=== PATIENT | female | born 1995 | race Caucasian/White ===

== ENCOUNTER 2018-05-15 17:01 | Outpatient (CLI) | payer MEDICAID ==
[~2018-05-15] VITALS: Ht 152.4 cm; Wt 68.0 kg
[~2018-05-15 17:01] MED LIST: ALBU8.5H IH; AMOX-559 PO; AMPH10TA20 PO; AMPH20TA18 PO; AZIT-1 PO; BIRTH CONTROL; BUP100 PO; BUTA1CAP4 PO; BUTA1TAB14 PO; CHOL10005 PO; DOCU-416 PO; DOXY-179 PO; EPIN0.3P15 IM; ESCI20TA38 PO; FLU60SYR30 IM ONLY; HYDR-4309 PO; IBUP-1618 PO; IBUP600T22 PO; IBUP800T37 PO; IBUPROFEN PO; IPRA3AMP10 IH; LEVO0.5P3 MC; LEVO50TA80 PO; LEXAPRO PO; LIB PO; MED150I IM ONLY; METR-1 PO; MIR; NAP500 PO; NITR-105 PO; OMEP-125 PO; ONDA4TAB PO; ONDA4TAB97 PO; OXYC-865 PO; PAR20 PO; PARO-243 PO; PARO-244 PO; PRED20TA6 PO; PREN-127 PO; PREN1TAB15 PO; PROM-110 PO; PROM25SU9 RC; PROP10TA58 PO; PROP20TA56 PO; R-TANPT PO; SERT-181 PO; SERT-184 PO; SULF-198 PO; SUMA50TA34 PO; TRA50 PO; TRAM-420 PO; TRAZ-133 PO
[2018-05-15 17:15] VITALS: BP 117/79; Ht 152.4 cm; Wt 68.0 kg
[2018-05-15] MEDS ORDERED: ACETAMINOPHEN 500 MG TAB PO ONE (17:45)
[2018-05-15] MEDS ORDERED: LR(*) 1000 ML BAG 1,000 ML IV ONE (17:45)
[2018-05-15 18:50] LABS: PLATELET COUNT, AUTOMATED 266 K/uL (150-450)
== END 2018-05-15 19:43 | disposition home or self-care (01) ==
LOC: L&D 17:01 → OB 17:01 → UNDOADMIN 17:01 → UNDODISIN 19:43 → L&D 19:43 → EDSTATUS 05-17 12:54
PROVIDERS: ATTEND Student in an Organized Health Care Education/Training Program
DX: O26.893 Other specified pregnancy related conditions, third trimester (principal); R10.30 Lower abdominal pain, unspecified; Z3A.29 29 weeks gestation of pregnancy
CPT/HCPCS: 36415; 81001; 85025; 87077; 87088; 87186; G0463; J7120; 99213

== ENCOUNTER → 2018-06-04 | Outpatient (CLI) | payer MEDICAID ==
[2018-05-15 17:15] VITALS: BMI 29.3
[~2018-06-04] MED LIST changes: +DIPH0.5D12 IM
[2018-06-04 11:20] LABS: PLATELET COUNT, AUTOMATED 301 K/uL (150-450)
== END ==
LOC: LAB 10:45
PROVIDERS: ATTEND Obstetrics & Gynecology
DX: O09.33 Supervision of pregnancy with insufficient antenatal care, third trimester (principal); E03.9 Hypothyroidism, unspecified
CPT/HCPCS: 36415; 84443; 85025; 86592; 86703; 86762; 86787; 86850; 86900; 86901; 87340; 87491; 87591

== ENCOUNTER → 2018-06-07 | Outpatient (CLI) | payer MEDICAID ==
[2018-05-15 17:15] VITALS: BMI 29.3
--- NOTE | 2018-06-07 13:31 | RADIOLOGY IMAGING REPORT ---
[place]AC[place] [facility] [place] NAME: Katie Lux : 1995 MR: [id number] V: [id number] EXAM DATE: ORDERING PHYSICIAN: MAYI RIVERA TECHNOLOGIST: Location: [facility] - [place] Patient: Katie Lux : 1995 Visit/Account:[id number] Date of Sevice: 06/07/2018 OB ANATOMICAL SURVEY HISTORY: Third trimester anatomic survey, no care COMPARISON: None. TECHNIQUE: Transabdominal imaging was performed for assessment of the fetus and maternal pelvic s tructures. Transvaginal imaging was not performed. FINDINGS: Intrauterine gestations: One. presentation: Cephalic. heart rate: 135 bpm. Amniotic fluid volume: Normal; CIRILO 17.5 cm; MVP 7 cm. Placenta: Anterior and fundal. Uterus: Gravid, otherwise grossly unremarkable where visualized. Maternal adnexa/ovaries: Grossly unremarkable, ovaries not visualized. Cervix: Not imaged. Gestational Parameters: BPD: 8.02 cm, 21st percentile HC: 99.14 cm, 4th percentile AC: 26.63 cm, 4th percentile FL: 6.18 cm, 16th percentile Average ultrasound age (AUA): 31 weeks/ six days Estimated age based on LMP: 33 weeks/ zero days, LMP percentile 7% Estimated weight (EFW): 1760 grams +/- 257 grams Anatomic Survey: Intracranial structures, 4-chamber heart, stomach, kidneys, urinary bladder, spine, 3-vessel cord and cord insertion are unremarkable. Two upper and two lower extremities visualized. IMPRESSION: Single fetus in cephalic presentation with an estimated gestational age by measurements of 31 weeks a nd six days. Estimated gestational age by LMP is 33 weeks and zero days. LMP percentile is 70% Estimated weight 1760 g Report Dictated By: Amy Barnett MD at 06/07/2018 1:24 PM Report E-Signed By: Amy Barnett MD at 06/07/2018 1:28 PM WSN:SALAS
== END ==
LOC: RAD 08:00
PROVIDERS: ATTEND Obstetrics & Gynecology
DX: O09.33 Supervision of pregnancy with insufficient antenatal care, third trimester (principal); O09.93 Supervision of high risk pregnancy, unspecified, third trimester; Z3A.31 31 weeks gestation of pregnancy

== ENCOUNTER → 2018-06-07 | Outpatient (CLI) | payer MEDICAID ==
[2018-05-15 17:15] VITALS: BMI 29.3
== END ==
LOC: LAB 08:06
PROVIDERS: ATTEND Obstetrics & Gynecology
DX: Z34.93 Encounter for supervision of normal pregnancy, unspecified, third trimester (principal)
CPT/HCPCS: 36415; 82950

== ENCOUNTER → 2018-06-17 | Outpatient (CLI) | payer MEDICAID ==
[2018-05-15 17:15] VITALS: BMI 29.3
[~2018-06-17] MED LIST changes: +CEPH500T7 PO; +DIPH-740 PO
== END ==
LOC: LAB 10:13
PROVIDERS: ATTEND Student in an Organized Health Care Education/Training Program
DX: N39.0 Urinary tract infection, site not specified (principal)
CPT/HCPCS: 87088

== ENCOUNTER 2018-06-25 11:08 | Outpatient (CLI) | payer MEDICAID ==
[2018-05-15 17:15] VITALS: Wt 75.7 kg
[2018-06-25] MEDS ORDERED: NIFEdipine 10 MG CAP PO ONE ×2 (11:30→11:53)
[2018-06-25 11:35] VITALS: BP 106/57
[2018-06-25] MEDS ORDERED: ACETAMINOPHEN 500 MG TAB PO ONE (12:30)
--- NOTE | 2018-06-25 13:41 | RADIOLOGY IMAGING REPORT ---
FACILITY: [facility] PATIENT NAME: Katie Lux : 1995 MR: [id number] V: [id number] EXAM DATE: ORDERING PHYSICIAN: MAYI RIVERA TECHNOLOGIST: Location: [facility] Patient: Katie Lux : 1995 Visit/Account:[id number] Date of Sevice: 06/25/2018 OB Ultrasound > 14 weeks with anatomic evaluation HISTORY: Growth and CIRILO, umbilical cord Dopplers if less than the 5th percentile. COMPARISON STUDIES: evaluation from June 07. FINDINGS: Intrauterine gestations: one presentation: Vertex heart rate: 147 bpm Amniotic fluid index: 10.5 cm Largest amniotic fluid pocket 6.0 cm Placenta: Anterior superior without previa Uterus: gravid, otherwise normal Maternal adnexa: Unremarkable Gestational Parameters: BPD: 8.36 cm 33 weeks five days HC: 30.75 cm 34 weeks three days AC: 29.68 cm 33 weeks five days FL: 6.52 cm 33 weeks five days Average ultrasound age (AUA): 34 weeks zero days. TIRSO: 08/06/2018. Estimated weight (EFW): 2258 g EFW: 9th percentile Anatomic Survey: Anatomic survey was not performed. IMPRESSION: 1. Single live intrauterine gestation; estimated ultrasound age 34 weeks, zero days. Correlates appr opriately with the LMP.. 2. Vertex positioning 3. Estimated weight 2258 g, 9th percentile. Report Dictated By: Adin Brown MD at 06/25/2018 1:21 PM Report E-Signed By: Adin Brown MD at 06/25/2018 1:38 PM WSN:SIA-ZENAIDA
[2018-06-25] MEDS ORDERED: TERBUTALINE SULF 1 MG/ML VIAL SC ONE (16:55)
== END 2018-06-25 19:15 | disposition home or self-care (01) ==
LOC: UNDOADMIN 11:08 → OB 11:08 → L&D 11:08 → OB 11:08 → UNDODISIN 19:15 → L&D 19:15 → EDSTATUS 07-02 16:33
PROVIDERS: ATTEND Obstetrics & Gynecology
DX: O47.03 False labor before 37 completed weeks of gestation, third trimester (principal); Z3A.35 35 weeks gestation of pregnancy
CPT/HCPCS: 76815; 76820; 84112; 87081; G0463; J3105; 99213

== ENCOUNTER → 2018-06-25 | Outpatient (CLI) | payer MEDICAID ==
[2018-05-15 17:15] VITALS: BMI 29.3
== END ==
LOC: LAB 10:59
PROVIDERS: ATTEND Obstetrics & Gynecology
DX: O26.899 Other specified pregnancy related conditions, unspecified trimester (principal); Z36.85 Encounter for antenatal screening for Streptococcus B
CPT/HCPCS: 84112; 87081

== ENCOUNTER 2018-07-08 12:17 | Outpatient (CLI) | payer MEDICAID ==
[2018-05-15 17:15] VITALS: Wt 75.7 kg
== END 2018-07-08 14:14 | disposition home or self-care (01) ==
LOC: UNDOADMIN 12:17 → OB 12:17 → L&D 12:17 → OB 12:17 → UNDODISIN 14:14 → L&D 14:14 → EDSTATUS 07-12 06:50
PROVIDERS: ATTEND Obstetrics & Gynecology
DX: O47.1 False labor at or after 37 completed weeks of gestation (principal); Z3A.37 37 weeks gestation of pregnancy
CPT/HCPCS: 59025; 81001; 84112; G0463; 99213

== ENCOUNTER → 2018-07-14 | Outpatient (CLI) | payer MEDICAID ==
[2018-05-15 17:15] VITALS: BMI 29.3
== END ==
LOC: LAB 11:27
PROVIDERS: ATTEND Obstetrics & Gynecology
DX: R11.2 Nausea with vomiting, unspecified (principal)
CPT/HCPCS: 36415; 82040; 82247; 82310; 82374; 82435; 82565; 82947; 84075; 84132; 84155; 84295; 84450; 84460; 84520; 85027

== ENCOUNTER 2018-07-15 08:38 | Outpatient (CLI) | payer MEDICAID ==
[~2018-07-15] VITALS: Ht 152.4 cm; Wt 77.6 kg
[2018-07-15 09:30] VITALS: BP 122/60; BMI 33.4
[2018-07-15] MEDS ORDERED: DLR(*) 1000 ML BAG 1,000 ML IV PRN (11:13)
[2018-07-15] MEDS ORDERED: ONDANSETRON 4 MG/2 ML VIAL IVP ONE (11:15)
[2018-07-15] MEDS ORDERED: LR(*) 1000 ML BAG 1,000 ML ONE (11:25)
[2018-07-19 07:30] VITALS: Ht 152.4 cm; Wt 77.6 kg
== END 2018-07-15 13:40 | disposition home or self-care (01) ==
LOC: OB 08:38 → UNDOADMIN 08:38 → L&D 08:38 → OB 08:38 → L&D 13:40 → UNDODISIN 13:40 → EDSTATUS 07-19 09:00
PROVIDERS: ATTEND Obstetrics & Gynecology
DX: O60.03 Preterm labor without delivery, third trimester (principal); Z3A.38 38 weeks gestation of pregnancy
CPT/HCPCS: 59025; G0463; J2405; J7120; 99213

== ENCOUNTER 2018-07-19 06:53 | Inpatient (IN) | payer MEDICAID ==
[2018-07-19] VITALS (17 sets, daily range): BP systolic 92–143; BP diastolic 48–98; Ht 152.4 cm; Wt 77.6 kg
[~2018-07-19] VITALS: Ht 152.4 cm; Wt 77.6 kg
[2018-07-19] MEDS ORDERED: ceFAZolin(*) 2GM/D5W 50ML 50 ML IVPB ONE (06:55)
[2018-07-19] MEDS ORDERED: METOCLOPRAMIDE 10 MG/2 ML SDV IVP ONE (06:55)
[2018-07-19] MEDS ORDERED: FAMOTIDINE 20 MG/50 ML PREMIX IVPB ONE (06:55)
[2018-07-19] MEDS ORDERED: CITRIC ACID/SOD CITRATE 30 ML PO ONE (06:55)
[2018-07-19 07:39] LABS: PLATELET COUNT, AUTOMATED 266 K/uL (150-450)
[2018-07-19] MEDS: LR(*) 1000 ML BAG 1,000 ML IV SCH ×3 (07:44→10:47)
[2018-07-19] MEDS ORDERED: OXYTOCIN 30 UNIT/D5LR 500 ML 500 ML ONE (08:15)
[2018-07-19] MEDS ORDERED: KETOROLAC 30 MG/ML VIAL ONE (08:15)
[2018-07-19] MEDS ORDERED: ONDANSETRON 4 MG/2 ML VIAL ONE (08:15)
[2018-07-19] MEDS ORDERED: OXYTOCIN 10 UNIT/ML SDV ONE (08:15)
[2018-07-19] MEDS ORDERED: diphenhydrAMINE 50 MG/ML VIAL ONE (08:16)
[2018-07-19] MEDS ORDERED: MORPHINE PF 5 MG/10 ML AMP ONE (08:16)
--- NOTE | 2018-07-19 08:40 | History & Physical ---
History of Present Illness EDC per LMP: Jul 26, 2018 Estimated Gestational Age: 39.0 Chief Complaint Scheduled History of Present Illness 23-year-old at 39w0d presents for scheduled delivery. She reports movement. Denies uterine contractions or vaginal bleeding. No p reeclampsia symptoms. care by IMG. , complicated by history of for nonreassuring status, hypothyroid, late entry to care, borderline growth restriction, rubella and varicella nonimmune. History Patient's Blood Type: O Positive Rubella Status: Non-Immune Group B Strep Screen: Negative Obstetrical History: G1: SAB 2011 G2: Primary LTCD 05/2016 for nonreassuring status Past Medical History: PMH: Eczema, anxiety/depression, hypothyroid PSH: CD, appy, darlin, eye surgery Allergies: Coded Allergies: promethazine (Verified Allergy, Mild, shakes, 08/04/17) muscle twitching Uncoded Allergies: CHOCOLATE (Allergy, Severe, ANAPHALAXSIS, 05/10/17) Family History: FH: cancer MOTHER Med Rec Home Meds Active Scripts Levothyroxine Sodium (SYNTHROID) 50 Mcg Tablet, 1 TAB PO QDAY, #90 TAB 1 Refill Prov:MAYI RIVERA MD 06/07/18 Reported Medications Vits W-Ca,Fe,Fa(<1MG) ( VITAMINS) 1 Each Tablet, 1 EACH PO DAILY, TAB 03/09/17 Review of Systems Constitutional: No Fever Neurological: No Syncope ENT: No Hearing Loss Cardiovascular: No Chest Pain Respiratory: No Shortness of Breath, No Cough Gastrointestinal: No Nausea, No Vomiting, No Diarrhea Genitourinary: No Dysuria Musculoskeletal: No Pain Psychiatric: Depression, Anxiety Exam General Exam Vital Signs VS reviewed General Apperance: Alert/Awake/No Acute Distress Neuro: No Gross deficits Eyes: Normal Extraocular Movement & Vison Respiratory: No Respiratory Distress, Clear to Auscultation Abdomen: Gravid - Non-Tender Musculoskeletal: No Weakness/Pain Extremities: No Cyanosis,Clubbing or Edema Integumentary: Skin Intact without Lesions or Rash Psychological: Alert & Oriented X3, Appropriate Mood & Affect Fetus FHT Category: I Medical Decision Making Data Points Result Diagram: 07/19/18 0655 Pre-Admit Course Medical Record Review: Yes VTE Prophylasis: Adult Deep Vein Thrombosis/Pulmonary: No Pharmacological Contraindicati: Pt at Low Risk for VTE Mechanical Contraindications: Pt at Low Risk for VTE Assessment and Plan Problems: (1) History of delivery affecting Assessment & Plan: 23-year-old at 39w0d presents for scheduled delivery. Discussed risks, benefits and alternatives once again with the patient. She elects to proceed. Will treat with Ancef preoperatively for an prophylaxis. (2) 39 weeks gestation of MAYI RIVERA MD Jul 19, 2018 08:40
[2018-07-19] MEDS ORDERED: ATROPINE SUL 0.4 MG/ML VIAL ONE (09:06)
[2018-07-19] MEDS ORDERED: DEXAMETHASONE SOD 4 MG/ML VIAL ONE (09:19)
[2018-07-19] MEDS ORDERED: SIMETHICONE 80 MG CHEW CHEW PRN (10:00)
[2018-07-19] MEDS ORDERED: ONDANSETRON 4 MG/2 ML VIAL IV PRN (10:00)
[2018-07-19] MEDS ORDERED: OXYTOCIN 30 UNIT/LR 500 ML 500 ML IV PRN (10:00)
[2018-07-19] MEDS ORDERED: LANOLIN OINT 7 GM TUBE TP PRN (10:00)
[2018-07-19] MEDS ORDERED: ACETAMINOPHEN 325 MG TAB PO PRN (10:00)
[2018-07-19] MEDS ORDERED: MAGNESIUM HYDROXIDE* 30ML UDCP PO PRN (10:00)
--- NOTE | 2018-07-19 10:00 | Post Operative Note ---
Operative Note - COUNTER ATTENDANT Operative Day Date: Jul 19, 2018 Physicians Surgeon: Handy Anesthesia: Spinal, Nir Araiza Diagnosis Pre-Op Diagnosis: IUP at 39wks with hx of CD and desire for repeat Post-Op Diagnosis: Same Viable female, 0923hrs, 2824g (6#3.6oz), Apgars 8/9 Procedure Procedure(s): RLTCD Fluids Fluids: IVF: 1600cc UOP: 200cc Estimated Blood Loss: 500cc MAYI RIVERA MD Jul 19, 2018 10:00
[2018-07-19] MEDS ORDERED: IBUP800T37 PO (10:18)
[2018-07-19] MEDS ORDERED: OXYC-865 PO (10:18)
--- NOTE | 2018-07-19 13:14 | OPERATIVE REPORT 1 ---
EVENT DATE: July 19, 2018 SURGEON: Melony Murrell MD ANESTHESIA: Spinal by Nir Araiza CRNA PREOPERATIVE DIAGNOSIS Intrauterine at 39 weeks with a history of caesarean delivery and desire for repeat. POSTOPERATIVE DIAGNOSIS 1. Intrauterine at 39 weeks with a history of caesarean delivery and desire for repeat. 2. Delivery of viable female at 0923 hours, weighing 2824 grams or 6 pounds 3.6 ounces with Apgars of 8 at one minute and 9 at five minutes. PROCEDURE PERFORMED Repeat low transverse delivery. IV FLUIDS 1600 cc. URINE OUTPUT 200 cc. ESTIMATED BLOOD LOSS 500 cc. INDICATIONS FOR PROCEDURE This patient is a 23-year-old 3, para 1-0-1-1 who presents at 39 weeks and 0 days for scheduled delivery. Please see History and Physical for full details. She was admitted for the same. DESCRIPTION OF PROCEDURE The patient was properly identified and taken to the operating room. She was administered a spinal anesthetic and placed in the supine position with a leftward tilt. A Butler catheter was then placed and her abdomen was prepped and draped in the usual fashion for a lower abdominal surgery. Once adequate anesthesia was confirmed, her prior incision was excised using a scalpel and electrocautery. The incision was then carried down to the rectus fascia, which was resected in the midline. Incision was extended bilaterally. The rectus fascia was from the underlying rectus muscle using a combination of blunt and electrocautery. Once adequate exposure was obtained, the peritoneum was identified and entered in a blunt fashion. This incision was extended using a combination of blunt and electrocautery. Once adequate exposure to the abdominal cavity was obtained, a bladder blade was then placed, revealing the vesicouterine peritoneum. This peritoneum was then reflected downward off the lower uterine segment. A low transverse incision was made over the lower uterine segment, revealing intact membranes. The amniotic sac was then ruptured with return of clear fluid. The 's vertex was delivered easily through the uterine incision. A double nuchal cord was then noted and relieved around the head. The anterior shoulder delivered easily followed by the posterior shoulder. The remainder of the was easily delivered. The had spontaneous cry and spontaneous movement of all four extremities. The oropharynx and nasopharynx were bulb suctioned and the infant was dried and stimulated. After 30 seconds, the cord was clamped x2 and cut and the was passed to the nursing personnel in good condition. Cord blood was then obtained and passed off the table. Pitocin was started through the IV fluid to help firm the uterus. The placenta was subsequently delivered manually. intact and was passed off the table. The uterus was then exteriorized and bilateral tubes and ovaries were visualized and appeared within normal limits. The uterus was cleared of any remaining clots or debris. The uterine incision was then reapproximated using an 0 Vicryl in a running locking fashion. A second imbricating layer using 0 Monocryl was then performed. There was a small hematoma forming on the right aspect of the incision. This was ligated using two [id number] sutures. The uterus was then replaced in the abdominal cavity. The pericolic gutters were cleared of clots and debris. The uterine incision was again inspected and noted to be hemostatic without extension of the previously visualized hematoma. The peritoneum was then identified and reapproximated using a 2-0 Monocryl followed by reapproximation of the muscle in the midline. The rectus muscle was then copiously irrigated and made hemostatic with electrocautery. The rectus fascia was reapproximated using 0 Vicryl suture working from one apex to the next. The subcutaneous tissue was copiously irrigated and reapproximated with a 2-0 Monocryl. The skin was then closed Insorb marco a and a Prim[place] dressing was placed followed by a pressure dressing. The patient tolerated the procedure well and recovered in labor and delivery with her infant. All sponge, needle and instrument count were correct at the end of this procedure. SARBJIT
[2018-07-19] MEDS ORDERED: KETOROLAC 30 MG/ML VIAL IVP SCH (14:00)
[2018-07-19] MEDS: DLR(*) 1000 ML BAG 1,000 ML IV PRN ×2 (14:50→20:55)
[2018-07-19] MEDS: KETOROLAC 30 MG/ML VIAL IVP SCH ×2 (16:08→21:37)
[2018-07-19] MEDS: DOCUSATE CALCIUM 240 MG CAP PO SCH (20:55)
[2018-07-19] MEDS: FAMOTIDINE 20 MG TAB PO SCH (20:55)
[2018-07-20 02:45] VITALS: BP 107/61
[2018-07-20] MEDS: DLR(*) 1000 ML BAG 1,000 ML IV PRN (03:00)
[2018-07-20] MEDS: KETOROLAC 30 MG/ML VIAL IVP SCH (03:32)
[2018-07-20 06:32] LABS: PLATELET COUNT, AUTOMATED 237 K/uL (150-450)
--- NOTE | 2018-07-20 08:02 | OB/GYN Progress Note ---
OB Subjective Progress Notes Subjective Doing well. Pain controlled with oral medications. Tolerating regular diet. Ambulating. Butler still in. Normal lochia. No preeclampsia symptoms. OB Objective Physical Exam Vital Signs Date Time Temp Pulse Resp B/P (MAP) Pulse Ox O2 Delivery O2 Flow Rate FiO2 07/20/18 02:45 98.1 52 16 107/61 (76) 93 Room Air Intake and Output0 07/20/18 07:00 Intake Total 7240 ml Output Total 3100 ml Balance 4140 ml Intake Oral 120 ml IV Total 5520 ml Other 1600 ml Output Urine Total 2600 ml Estimated Blood Loss 500 ml General Appearance: Alert/Awake/No Acute Distress Neurological: No Gross deficits Eyes: Normal Extraocular Movement & Vison Cardiovascular: Normal Rhythm & Peripheral Pulses, Regular Rate and Rhythm Respiratory: No Respiratory Distress, Clear to Auscultation Abdomen: Soft, Non-Tender, Non-Distended, Fundus Firm Incision: Clean, Dry, Intact Extremities: No Cyanosis,Clubbing or Edema Integumentary: Skin Intact without Lesions or Rash Psychological: Alert & Oriented X3, Appropriate Mood & Affect Result Diagram: 07/20/18 0557 Assessment and Plan Problems: (1) Status post delivery Status: Acute Assessment & Plan: POD#1 s/p RLTCD. Doing well. No concerns. Routine orders. Anticipate home tomorrow. MAYI RIVERA MD Jul 20, 2018 08:02
--- NOTE | 2018-07-20 08:16 | Anesthesia OB Pre-Anes Eval ---
History of Present Illness Anesthesia Start Date: Jul 19, 2018 Anesthesia Start Time: 08:55 OB Anesthesia Diagnosis: repeat c/section Current Complication: obesity EDC: Jul 26, 2018 : 3 Para: 1 Result Diagram: 07/19/18 0655 Weight (Pounds): 171 BMI Calculated: 33.39 Past Medical History Medical History: no pertinent history, obesity, other (Hypothyroidism) Surgical History: appendectomy, cholecystectomy, Previous Anesthesia: general, spinal Attended Childbirth Classes?: No Hx Anesthesia Reactions: No Hx Family Anesthesia Reaction: No Home Meds Active Scripts Oxycodone Hcl/Acetaminophen (PERCOCET 5-325 MG TABLET) 1 Each Tablet, 1 TAB PO Q4-6H PRN for pain, #40 TAB 0 Refills Prov:MAYI RIVERA MD 07/19/18 Levothyroxine Sodium (SYNTHROID) 50 Mcg Tablet, 1 TAB PO QDAY, #90 TAB 1 Refill Prov:MAYI RIVERA MD 06/07/18 Reported Medications Vits W-Ca,Fe,Fa(<1MG) ( VITAMINS) 1 Each Tablet, 1 EACH PO DAILY, TAB 03/09/17 Allergies: Coded Allergies: promethazine (Verified Allergy, Mild, shakes, 08/04/17) muscle twitching Uncoded Allergies: CHOCOLATE (Allergy, Severe, ANAPHALAXSIS, 05/10/17) Anesthesia OB ROS Airway Class: l GI ROS: NPO Last Solids Date: Jul 18, 2018 Last Solids Time: 22:30 ASA Classification: 2 Assessment and Plan Anesthesia Plan: SAB Anesthesia Stop Day: Jul 19, 2018 Anesthesia Stop Time: 10:04 LEESA FISCHER CRNA Jul 19, 2018 08:23
--- NOTE | 2018-07-20 08:18 | Anesthesia Post Eval Note ---
Anesthesia Post Eval Note Stabil, afebrile. Pt able to participate in Eval: Yes Cardiovascular Status: Satisfactory Respiratory Status: Satisfactory Pain Managment: Satisfactory PO Nausea/Vomiting: Satisfactory Temperature Management: Satisfactory Mental Status: Satisfactory, Alert, Oriented X3 Post-Op Hydration Status: Satisfactory, Tolerating PO Well Anesthesia Type: SAB Anesthesia Tolerance: S/P SAB with Duramorph for repeat yesterday. Pt. tolerated Duramorph well, no nausea, had some mild itching. Ambulatory without symptoms PDPH, no apparent complications. LEESA FISCHER SPRAY DRIER OPERATOR Jul 20, 2018 08:18
[2018-07-20 09:15] VITALS: BP 115/67
[2018-07-20] MEDS: FAMOTIDINE 20 MG TAB PO SCH ×2 (10:42→20:34)
[2018-07-20] MEDS: DOCUSATE CALCIUM 240 MG CAP PO SCH ×2 (10:42→20:34)
[2018-07-20] MEDS: IBUPROFEN 800 MG TAB PO SCH ×2 (10:46→18:35)
[2018-07-20 11:00] VITALS: BP 115/62
[2018-07-20 17:00] VITALS: BP 108/79
[2018-07-20 20:15] VITALS: BP 117/82
[2018-07-21 03:00] VITALS: BP 113/68
[2018-07-21] MEDS: IBUPROFEN 800 MG TAB PO SCH ×2 (03:03→09:49)
--- NOTE | 2018-07-21 07:50 | OB/GYN Progress Note ---
OB Subjective Progress Notes Subjective Doing well. Pain controlled with oral medications. Tolerating regular diet. Ambulating. Voiding. Normal lochia. No preeclampsia symptoms. OB Objective Physical Exam Vital Signs Date Time Temp Pulse Resp B/P (MAP) Pulse Ox O2 Delivery O2 Flow Rate FiO2 07/21/18 05:30 14 07/21/18 03:00 97.5 78 113/68 (83) Room Air 07/20/18 17:00 97 Intake and Output 07/21/18 06:59 Intake Total 1250 ml Output Total 1650 ml Balance -400 ml Intake Oral 1250 ml Output Urine Total 1650 ml # Voids 3 General Appearance: Alert/Awake/No Acute Distress Neurological: No Gross deficits Eyes: Normal Extraocular Movement & Vison Cardiovascular: Normal Rhythm & Peripheral Pulses, Regular Rate and Rhythm Respiratory: No Respiratory Distress, Clear to Auscultation Abdomen: Soft, Non-Tender, Non-Distended, Fundus Firm Incision: Clean, Dry, Intact Extremities: No Cyanosis,Clubbing or Edema Integumentary: Skin Intact without Lesions or Rash Psychological: Alert & Oriented X3, Appropriate Mood & Affect Result Diagram: 07/20/18 0557 Assessment and Plan Problems: (1) Status post delivery Status: Acute Assessment & Plan: POD#2. Meeting milestones. Desires discharge to home today. Discussed routine expectations. Questions answered. Follow up in clinic in 2wks and 6wks for check. MAYI RIVERA MD Jul 21, 2018 07:50
--- NOTE | 2018-07-21 07:51 | OB/GYN Discharge Summary ---
Discharge Summary Reason for Hosp/Final Diag: (1) Status post delivery Status: Acute Hospital Course & Plan: POD#2. Meeting milestones. Desires discharge to home today. Discussed routine expectations. Questions answered. Follow up in clinic in 2wks and 6wks for check. Lates Vital Signs Vital Signs Date Time Temp Pulse Resp B/P (MAP) Pulse Ox O2 Delivery O2 Flow Rate FiO2 07/21/18 05:30 14 07/21/18 03:00 97.5 78 113/68 (83) Room Air 07/20/18 17:00 97 Weight (Pounds): 171 Weight (Ounces): 5.0 Result Diagram: 07/20/18 0557 Condition: Improved Discharge: Home, Self Skilled Nursing Meds Active Scripts Oxycodone Hcl/Acetaminophen (PERCOCET 5-325 MG TABLET) 1 Each Tablet, 1 TAB PO Q4-6H PRN for pain, #40 TAB 0 Refills Prov:MAYI RIVERA MD 07/19/18 Levothyroxine Sodium (SYNTHROID) 50 Mcg Tablet, 1 TAB PO QDAY, #90 TAB 1 Refill Prov:MAYI RIVERA MD 06/07/18 Reported Medications Vits W-Ca,Fe,Fa(<1MG) ( VITAMINS) 1 Each Tablet, 1 EACH PO DAILY, TAB 03/09/17 Follow up Referrals: [facility] - In Two Weeks @ [facility] with MAYI RIVERA MD Discharge Diet: As Tolerates Discharge Activity: No Heavy Lifting > 10lb, Pelvic Rest MAYI RIVERA MD Jul 21, 2018 07:51
[2018-07-21] MEDS ORDERED: LEVOTHYROXINE SOD 0.05 MG TAB PO ONE (08:15)
[2018-07-21] MEDS: DOCUSATE CALCIUM 240 MG CAP PO SCH (09:49)
[2018-07-21] MEDS: FAMOTIDINE 20 MG TAB PO SCH (09:49)
[2018-07-21] MEDS ORDERED: MEASLES,MUMP,RUBELLA VAC 0.5ML SUBQ ONE (10:00)
[2018-07-21] MEDS ORDERED: DIPHTH/TETANUS/ACEL. PERTUSSIS IM ONLY ONE (10:00)
[2018-07-21] MEDS ORDERED: INFLUENZA VIRUS VAC 0.5ML SYR IM ONLY ONE (10:00)
== END 2018-07-21 10:10 | disposition home or self-care (01) | DRG 788 ==
LOC: OB 06:53
PROVIDERS: ADMIT Obstetrics & Gynecology; ATTEND Obstetrics & Gynecology
PROC: 10D00Z1 Extraction of Products of Conception, Low, Open Approach (ICD-10-PCS; principal; 2018-07-19 09:00)
DX: O34.211 Maternal care for low transverse scar from previous cesarean delivery (principal); O69.81X0 Labor and delivery complicated by cord around neck, without compression, not applicable or unspecified; O99.284 Endocrine, nutritional and metabolic diseases complicating childbirth; E03.9 Hypothyroidism, unspecified; Z3A.39 39 weeks gestation of pregnancy; Z37.0 Single live birth; Z90.49 Acquired absence of other specified parts of digestive tract; Z88.8 Allergy status to other drugs, medicaments and biological substances
CPT/HCPCS: 36415; 85025; 86850; 86900; 86901; J0461; J0690; J1100; J1200; J1885; J2270; J2405; J2590; J2765; J3490; J7120

== ENCOUNTER 2019-02-17 03:56 | Emergency (ER) | payer MEDICAID ==
[2018-07-19 07:30] VITALS: Wt 63.2 kg
[~2019-02-17 03:56] MED LIST changes: -DIPH0.5D12 IM; +DIPH0.5S2 IM; -HYDR-4309 PO; +HYDR-653 PO; +MEDR150V11 IM; -PREN1TAB15 PO; +PRENATAL ONE T1 EAC1 PO
--- NOTE | 2019-02-17 04:00 | ER Report ---
History and Physical Time Seen By MD: 04:00 HPI/ROS CHIEF COMPLAINT: back pain, abdominal pain, blood in urine HISTORY OF PRESENT ILLNESS: This is a 23 year old female. She is having some right back and flank pain and abdominal pain. No fevers noted. Having dysuria, urgency. Had blood in urine earlier tonight, but now gone. Has had appendix and gallbladder remove. Normal bowels. No blood in stool. Allergies: Coded Allergies: promethazine (Verified Allergy, Mild, shakes, 02/17/19) muscle twitching Uncoded Allergies: CHOCOLATE (Allergy, Severe, ANAPHALAXSIS, 05/10/17) Home Meds Active Scripts Amoxicillin (AMOXICILLIN) 500 Mg Capsule, 1 CAP PO Q8H, #15 CAPSULE 0 Refills Prov:CHRISTINA GLEASON MD 02/17/19 Levothyroxine Sodium (SYNTHROID) 50 Mcg Tablet, 1 TAB PO QDAY, #90 TAB 1 Refill Prov:MAYI RIVERA MD 06/07/18 Discontinued Reported Medications Vits W-Ca,Fe,Fa(<1MG) ( VITAMINS) 1 Each Tablet, 1 EACH PO DAILY, TAB 03/09/17 Discontinued Scripts Sulfamethoxazole/Trimet 800-160 Mg Tab (BACTRIM DS TABLET) 1 Each Tablet, 1 TAB PO Q12H, #10 TAB 0 Refills Prov:CHRISTINA GLEASON MD 02/17/19 Oxycodone Hcl/Acetaminophen (PERCOCET 5-325 MG TABLET) 1 Each Tablet, 1 TAB PO Q4-6H PRN for pain, #40 TAB 0 Refills Prov:MAYI RIVERA MD 07/19/18 Ibuprofen (IBUPROFEN) 800 Mg Tablet, 1 TAB PO Q8H PRN for pain, #40 TAB 0 Refills TAKE WITH FOOD EVERY 8 HOURS Prov:MAYI RIVERA MD 07/19/18 Reviewed Nurses Notes: Yes Hx Smoking: No Smoking Status: Never Smoker Exposure to Second Hand Smoke?: No Hx Substance Use Disorder: No Hx Alcohol Use: No Constitutional Vital Sign - Last 24 Hours 02/17/19 02/17/19 02/17/19 02/17/19 04:00 04:05 04:11 04:26 Temp 97.5 Pulse 63 82 60 Resp 18 B/P (MAP) 109/65 109/65 (80) Pulse Ox 93 90 91 O2 Delivery Room Air 02/17/19 02/17/19 02/17/19 02/17/19 04:30 04:41 04:56 05:00 Pulse 64 58 B/P (MAP) 100/60 (73) 110/72 (85) Pulse Ox 91 91 Physical Exam General Appearance: The patient is alert. No acute distress. Eyes: Pupils are equal, round. No pallor, injection or icterus. ENT: Mucous membranes are moist. Normal oral mucosa. Posterior oropharynx is normal. Neck: Supple and non tender. Respiratory: Lungs are clear to auscultation. Cardiovascular: Regular rate and rhythm. No murmurs, gallops or rubs. Normal capillary refill. Gastrointestinal: Abdomen is soft, tender in the suprapubic area. Pain in right flank and lower back. Nondistended. Normal active bowel sounds. Neurological: Alert and oriented x3. No focal neurologic deficits Skin: Warm and dry. DIFFERENTIAL DIAGNOSIS: After history and physical exam, differential diagnosis was considered for dysuria, suprapubic pain, back and flank pain with an episode of hematuria today, likely infection Medical Decision Making Data Points Laboratory Hematology Test 02/17/19 04:00 Urine Color Yellow Urine Clarity Cloudy Urine pH 7.0 pH (4.8-9.5) Urine Specific [place] 1.020 Urine Protein Negative mg/dL (NEGATIVE) Urine Glucose (UA) Negative mg/dL (NEGATIVE) Urine Ketones Negative mg/dL (NEGATIVE) Urine Blood Negative (NEGATIVE) Urine Nitrite Negative (NEGATIVE) Urine Bilirubin Negative (NEGATIVE) Urine Urobilinogen Negative mg/dL (0.2-1.9) Urine Leukocyte Esterase Negative (NEGATIVE) Urine RBC 2 /HPF (0-2/HPF) Urine WBC 2 /HPF (0-5/HPF) Urine Squamous Epithelial Cells Many /LPF (</=FEW) Urine Transitional Epithelial Cells Few /LPF (NONE-FEW) Urine Amorphous Crystals Few /HPF Urine Bacteria Few /HPF (NONE-FEW) Urine Mucus None /HPF (NONE-FEW) Chemistry Test 02/17/19 04:00 Urine Color Yellow Urine Clarity Cloudy Urine pH 7.0 pH (4.8-9.5) Urine Specific [place] 1.020 Urine Protein Negative mg/dL (NEGATIVE) Urine Glucose (UA) Negative mg/dL (NEGATIVE) Urine Ketones Negative mg/dL (NEGATIVE) Urine Blood Negative (NEGATIVE) Urine Nitrite Negative (NEGATIVE) Urine Bilirubin Negative (NEGATIVE) Urine Urobilinogen Negative mg/dL (0.2-1.9) Urine Leukocyte Esterase Negative (NEGATIVE) Urine RBC 2 /HPF (0-2/HPF) Urine WBC 2 /HPF (0-5/HPF) Urine Squamous Epithelial Cells Many /LPF (</=FEW) Urine Transitional Epithelial Cells Few /LPF (NONE-FEW) Urine Amorphous Crystals Few /HPF Urine Bacteria Few /HPF (NONE-FEW) Urine Mucus None /HPF (NONE-FEW) Urinalysis Test 02/17/19 04:00 Urine Color Yellow Urine Clarity Cloudy Urine pH 7.0 pH (4.8-9.5) Urine Specific [place] 1.020 Urine Protein Negative mg/dL (NEGATIVE) Urine Glucose (UA) Negative mg/dL (NEGATIVE) Urine Ketones Negative mg/dL (NEGATIVE) Urine Blood Negative (NEGATIVE) Urine Nitrite Negative (NEGATIVE) Urine Bilirubin Negative (NEGATIVE) Urine Urobilinogen Negative mg/dL (0.2-1.9) Urine Leukocyte Esterase Negative (NEGATIVE) Urine RBC 2 /HPF (0-2/HPF) Urine WBC 2 /HPF (0-5/HPF) Urine Squamous Epithelial Cells Many /LPF (</=FEW) Urine Transitional Epithelial Cells Few /LPF (NONE-FEW) Urine Amorphous Crystals Few /HPF Urine Bacteria Few /HPF (NONE-FEW) Urine Mucus None /HPF (NONE-FEW) ED Course/Re-evaluation ED Course Urinalysis with a few cells, not clearly infection. Discussed this with the patient and recommended doing further workup with labs and CT scan however the patient would prefer not to at this point. We will run a urine culture. Recommended follow-up with primary care for further evaluation of the hematuria. We will give amoxicillin for 5 days and await urine culture results. Decision to Disposition Date: February 17, 2019 Decision to Disposition Time: 05:02 Depart Departure Latest Vital Signs Vital Signs Date Time Temp Pulse Resp B/P (MAP) Pulse Ox O2 Delivery O2 Flow Rate FiO2 02/17/19 05:00 110/72 (85) 02/17/19 04:56 58 91 02/17/19 04:00 97.5 18 Room Air Impression: Primary Impression: Urinary tract infection Condition: Improved Disposition: HOME OR SELF-CARE Referrals: GUSTAVO TREJO DO (PCP) New Scripts Amoxicillin (AMOXICILLIN) 500 Mg Capsule 1 CAP PO Q8H, #15 CAPSULE 0 Refills Prov: CHRISTINA GLEASON MD 02/17/19 Patient Instructions: Hematuria (ED), Urinary Tract Infection in Women (ED) Additional Instructions: Please follow-up with your regular doctor or see a urologist for further evaluation for blood in the urine. Start Amoxicillin 500mg three times a day for 5 days. Return if worsening symptoms. Urine culture is being done, results available in 48-72 hours. Ibuprofen or Tylenol as needed for pain. Problem Qualifiers Primary Impression: Urinary tract infection Urinary tract infection type: site unspecified Hematuria presence: with hematuria Qualified Codes: N39.0 - Urinary tract infection, site not specified; R31.9 - Hematuria, unspecified CHRISTINA GLEASON MD February 17, 2019 04:00
[2019-02-17 05:00] VITALS: BP 110/72
[2019-02-17] MEDS ORDERED: SULF-198 PO (05:04)
[2019-02-17] MEDS ORDERED: TRIMETH/SULFA DS 160-800MG TAB PO ONE (05:05)
[2019-02-17] MEDS ORDERED: AMOX-362 PO (05:13)
[2019-02-17] MEDS ORDERED: AMOXICILLIN 500 MG CAP PO ONE (05:15)
== END 2019-02-17 05:18 | disposition home or self-care (01) ==
LOC: ER 04:23
DX: N39.0 Urinary tract infection, site not specified (principal); R31.9 Hematuria, unspecified
CPT/HCPCS: 81001; 87088; 99282

== ENCOUNTER 2019-02-22 16:58 | Emergency (ER) | payer MEDICAID ==
[2018-07-19 07:30] VITALS: BMI 33.6
[~2019-02-22 16:58] MED LIST changes: +AMOX-362 PO
== END 2019-02-22 18:40 ==
LOC: ER 18:31
DX: N39.9 Disorder of urinary system, unspecified (principal)
CPT/HCPCS: 81001; 96360; 99284

== ENCOUNTER 2019-04-26 08:43 | Emergency (ER) | payer MEDICAID ==
[2018-07-19 07:30] VITALS: Wt 63.5 kg
[~2019-04-26 08:43] MED LIST changes: -OMEP-125 PO; +OMEP-126 PO
--- NOTE | 2019-04-26 09:05 | ER Report ---
History and Physical Time Seen By MD: 09:02 Hx. of Stated Complaint: PRESENTS FROM HOME WITH LOWER ABD CRAMPING, LIGHT VAGINAL BLEEDING X 24 HRS. STATES "I WAS 2 MO LATE WITH MY DEPO SHOT AND GOT IT DONE YESTERDAY, MAYBE I'M BUT I'M NOT SURE". HPI/ROS Two months late on Depo. Received yesterday, and now with pelvic cramping and spotting. Said she is worried, b/c clinic did not check test before giving depo. No dysuria/hematuria. No IUD. No previous ectopic. Remainder of the 14 system rev: Yes Allergies: Coded Allergies: promethazine (Verified Allergy, Mild, shakes, 04/26/19) muscle twitching Uncoded Allergies: CHOCOLATE (Allergy, Severe, ANAPHALAXSIS, 05/10/17) Home Meds Active Scripts Levothyroxine Sodium (SYNTHROID) 50 Mcg Tablet, 1 TAB PO QDAY, #90 TAB 1 Refill Prov:MAYI RIVERA MD 06/07/18 Discontinued Scripts Amoxicillin (AMOXICILLIN) 500 Mg Capsule, 1 CAP PO Q8H, #15 CAPSULE 0 Refills Prov:CHRISTINA GLEASON MD 02/17/19 Reviewed Nurses Notes: Yes Old Medical Records Reviewed: Yes Hx Smoking: No Smoking Status: Never Smoker Exposure to Second Hand Smoke?: No Hx Substance Use Disorder: No Hx Alcohol Use: No Constitutional Vital Sign - Last 24 Hours 04/26/19 04/26/19 04/26/19 08:51 09:31 10:19 Temp 98.6 Pulse 58 60 60 Resp 18 18 18 B/P (MAP) 100/53 91/61 (71) 93/57 (69) Pulse Ox 98 94 O2 Delivery Room Air Room Air Room Air Physical Exam General Appearance: The patient is alert, has no immediate need for airway protection and no current signs of toxicity. Eyes: Pupils equal and round no injection. Respiratory: Chest is non tender, lungs are clear to auscultation. Cardiac: regular rate and rhythm Gastrointestinal: Abdomen is soft and non tender, no masses, bowel sounds normal. Skin: No rashes or lesions. DIFFERENTIAL DIAGNOSIS: After history and physical exam differential diagnosis was considered for abdominal pain including but not limited to appendicitis, cholecystitis, gastritis and urinary tract infection. Medical Decision Making Data Points Result Diagram: 04/26/1990404/26/19904 Laboratory Hematology Test 04/26/19 00:00 04/26/19 09:05 Urine Color Yellow Urine Clarity Clear Urine pH 5.0 pH (4.8-9.5) Urine Specific Prue 1.024 Urine Protein Negative mg/dL (NEGATIVE) Urine Glucose (UA) Negative mg/dL (NEGATIVE) Urine Ketones Trace mg/dL (NEGATIVE) Urine Blood Moderate (NEGATIVE) Urine Nitrite Negative (NEGATIVE) Urine Bilirubin Negative (NEGATIVE) Urine Urobilinogen Negative mg/dL (0.2-1.9) Urine Leukocyte Esterase Negative (NEGATIVE) Urine RBC 1 /HPF (0-2/HPF) Urine WBC 3 /HPF (0-5/HPF) Urine Squamous Epithelial Cells Many /LPF (</=FEW) Urine Transitional Epithelial Cells Few /LPF (NONE-FEW) Urine Bacteria Negative /HPF (NONE-FEW) Urine Mucus Few /HPF (NONE-FEW) Red Blood Count 4.71 M/uL (4.17-5.56) Mean Corpuscular Volume 93.6 fL (80.0-96.0) Mean Corpuscular Hemoglobin 32.2 pg (26.0-33.0) Mean Corpuscular Hemoglobin Concent 34.4 g/dL (32.0-36.0) Red Cell Distribution Width 12.6 % (11.5-14.5) Mean Platelet Volume 8.0 fL (7.2-11.1) Neutrophils (%) (Auto) 61.4 % (39.4-72.5) Lymphocytes (%) (Auto) 30.0 % (17.6-49.6) Monocytes (%) (Auto) 6.4 % (4.1-12.4) Eosinophils (%) (Auto) 1.7 % (0.4-6.7) Basophils (%) (Auto) 0.5 % (0.3-1.4) Nucleated RBC Relative Count (auto) 0.0 /100WBC Neutrophils # (Auto) 4.1 K/uL (2.0-7.4) Lymphocytes # (Auto) 2.0 K/uL (1.3-3.6) Monocytes # (Auto) 0.4 K/uL (0.3-1.0) Eosinophils # (Auto) 0.1 K/uL (0.0-0.5) Basophils # (Auto) 0.0 K/uL (0.0-0.1) Nucleated RBC Absolute Count (auto) 0.00 K/uL Sodium Level 143 mmol/L (137-145) Potassium Level 3.9 mmol/L (3.5-5.0) Chloride Level 110 mmol/L (98-107) Carbon Dioxide Level 19 mmol/L (22-31) Blood Urea Nitrogen 10 mg/dl (7-18) Creatinine 0.60 mg/dl (0.52-1.04) Glomerular Filtration Rate Calc > 60.0 Random Glucose 91 mg/dl (75-110) Calcium Level 8.9 mg/dl (8.4-10.2) Total Bilirubin 1.0 mg/dl (0.2-1.3) Aspartate Amino Transf (AST/SGOT) 22 U/L (0-35) Alanine Aminotransferase (ALT/SGPT) 23 U/L (0-56) Alkaline Phosphatase 81 U/L (0-126) Total Protein 7.1 g/dl (6.3-8.2) Albumin 4.1 g/dl (3.5-5.0) Human Chorionic Gonadotropin, Qual Negative (NEGATIVE) Chemistry Test 04/26/19 00:00 04/26/19 09:05 Urine Color Yellow Urine Clarity Clear Urine pH 5.0 pH (4.8-9.5) Urine Specific Prue 1.024 Urine Protein Negative mg/dL (NEGATIVE) Urine Glucose (UA) Negative mg/dL (NEGATIVE) Urine Ketones Trace mg/dL (NEGATIVE) Urine Blood Moderate (NEGATIVE) Urine Nitrite Negative (NEGATIVE) Urine Bilirubin Negative (NEGATIVE) Urine Urobilinogen Negative mg/dL (0.2-1.9) Urine Leukocyte Esterase Negative (NEGATIVE) Urine RBC 1 /HPF (0-2/HPF) Urine WBC 3 /HPF (0-5/HPF) Urine Squamous Epithelial Cells Many /LPF (</=FEW) Urine Transitional Epithelial Cells Few /LPF (NONE-FEW) Urine Bacteria Negative /HPF (NONE-FEW) Urine Mucus Few /HPF (NONE-FEW) White Blood Count 6.7 k/uL (4.5-11.0) Red Blood Count 4.71 M/uL (4.17-5.56) Hemoglobin 15.2 g/dL (12.0-16.0) Hematocrit 44.1 % (34.0-47.0) Mean Corpuscular Volume 93.6 fL (80.0-96.0) Mean Corpuscular Hemoglobin 32.2 pg (26.0-33.0) Mean Corpuscular Hemoglobin Concent 34.4 g/dL (32.0-36.0) Red Cell Distribution Width 12.6 % (11.5-14.5) Platelet Count 308 K/uL (150-450) Mean Platelet Volume 8.0 fL (7.2-11.1) Neutrophils (%) (Auto) 61.4 % (39.4-72.5) Lymphocytes (%) (Auto) 30.0 % (17.6-49.6) Monocytes (%) (Auto) 6.4 % (4.1-12.4) Eosinophils (%) (Auto) 1.7 % (0.4-6.7) Basophils (%) (Auto) 0.5 % (0.3-1.4) Nucleated RBC Relative Count (auto) 0.0 /100WBC Neutrophils # (Auto) 4.1 K/uL (2.0-7.4) Lymphocytes # (Auto) 2.0 K/uL (1.3-3.6) Monocytes # (Auto) 0.4 K/uL (0.3-1.0) Eosinophils # (Auto) 0.1 K/uL (0.0-0.5) Basophils # (Auto) 0.0 K/uL (0.0-0.1) Nucleated RBC Absolute Count (auto) 0.00 K/uL Glomerular Filtration Rate Calc > 60.0 Calcium Level 8.9 mg/dl (8.4-10.2) Total Bilirubin 1.0 mg/dl (0.2-1.3) Aspartate Amino Transf (AST/SGOT) 22 U/L (0-35) Alanine Aminotransferase (ALT/SGPT) 23 U/L (0-56) Alkaline Phosphatase 81 U/L (0-126) Total Protein 7.1 g/dl (6.3-8.2) Albumin 4.1 g/dl (3.5-5.0) Human Chorionic Gonadotropin, Qual Negative (NEGATIVE) Urinalysis Test 04/26/19 00:00 Urine Color Yellow Urine Clarity Clear Urine pH 5.0 pH (4.8-9.5) Urine Specific Prue 1.024 Urine Protein Negative mg/dL (NEGATIVE) Urine Glucose (UA) Negative mg/dL (NEGATIVE) Urine Ketones Trace mg/dL (NEGATIVE) Urine Blood Moderate (NEGATIVE) Urine Nitrite Negative (NEGATIVE) Urine Bilirubin Negative (NEGATIVE) Urine Urobilinogen Negative mg/dL (0.2-1.9) Urine Leukocyte Esterase Negative (NEGATIVE) Urine RBC 1 /HPF (0-2/HPF) Urine WBC 3 /HPF (0-5/HPF) Urine Squamous Epithelial Cells Many /LPF (</=FEW) Urine Transitional Epithelial Cells Few /LPF (NONE-FEW) Urine Bacteria Negative /HPF (NONE-FEW) Urine Mucus Few /HPF (NONE-FEW) ED Course/Re-evaluation ED Course test negative. Benign abdominal exam. No excessive bleeding. Symptoms likely secondary to missing Depo shot for 2 months, and then receiving it. Not c/w torsion/ruptured cyst. No further imaging needed. Pain controlled with NSAID. Taking PO in the ED. Decision to Disposition Date: Apr 26, 2019 Decision to Disposition Time: 10:34 Depart Departure Latest Vital Signs Vital Signs Date Time Temp Pulse Resp B/P (MAP) Pulse Ox O2 Delivery O2 Flow Rate FiO2 04/26/19 10:19 60 18 93/57 (69) Room Air 04/26/19 09:31 94 04/26/19 08:51 98.6 Impression: Primary Impression: Menses, irregular Condition: Improved Disposition: HOME OR SELF-CARE Referrals: GUSTAVO TREJO DO (PCP) Patient Instructions: Dysmenorrhea (ED) LANDEN GIRARD MD Apr 26, 2019 09:05
[2019-04-26] MEDS ORDERED: NS(*) 0.9% 1000 ML BAG 1,000 ML IV ONE (09:10)
[2019-04-26] MEDS ORDERED: ONDANSETRON 4 MG/2 ML VIAL IVP ONE (09:10)
[2019-04-26 09:21] LABS: PLATELET COUNT, AUTOMATED 308 K/uL (150-450)
[2019-04-26] MEDS ORDERED: KETOROLAC 30 MG/ML VIAL IVP ONE (10:10)
[2019-04-26 10:19] VITALS: BP 93/57
== END 2019-04-26 10:43 | disposition home or self-care (01) ==
LOC: ER 09:22
DX: N92.6 Irregular menstruation, unspecified (principal)
CPT/HCPCS: 81001; 84703; 85025; 96361; 96374; 99283; J1885; J2405; J7030; 82040; 82247; 82310; 82374; 82435; 82565; 82947; 84075; 84132; 84155; 84295; 84450; 84460; 84520